=== PATIENT | female | born 1990 | race Two or more races ===

== ENCOUNTER 2021-09-27 00:49 | Emergency (ER) | payer OTHER ==
[~2021-09-27] VITALS: Ht 160 cm; Wt 68.0 kg
[2021-09-27 00:51] VITALS: BP 93/48
== END 2021-09-27 05:23 | disposition left against medical advice (07) ==
LOC: ER 00:49
DX: O21.8 Other vomiting complicating pregnancy (principal); R42 Dizziness and giddiness; Z3A.01 Less than 8 weeks gestation of pregnancy; Z53.21 Procedure and treatment not carried out due to patient leaving prior to being seen by health care provider